=== PATIENT | female | born 1975 | race Caucasian/White ===

== ENCOUNTER 2025-07-23 15:14 | Emergency (ER) | payer BC ==
[~2025-07-23] VITALS: Ht 162.5 cm; Wt 93.9 kg
[2025-07-23 18:17] LABS: BASO # 0.1 10*3/uL (0.0-0.1); BASO % 1.0 % (0.0-1.0); EOS # 0.4 10*3/uL (0.0-0.4); EOS % 4.9 % (1.0-4.0); MEAN CELL VOLUME 90.8 fl (81.0-99.0); MEAN CORPUSCULAR HGB 29.8 pg (27.0-31.0); MEAN PLATELET VOLUME 9.6 fl (9.6-12.3); MONO # 0.7 10*3/uL (0.1-1.0); MONO % 8.5 % (3.0-9.0); NEUT # 4.7 10*3/uL (2.3-7.9); NEUT % 57.4 % (47.0-73.0); NUCLEATED RED BLOOD CELL 0.0 % (0.0-0.0); NUCLEATED RED BLOOD CELL 0.0 10*3/uL (0.0-0.0); PLATELET COUNT AUTOMATED 279 10*3/uL (130-400); RED CELL DISTRI WIDTH 12.7 % (0-14.5)
[2025-07-23 18:31] LABS: BILIRUBIN Negative (Negative); BLOOD Negative (Negative); CLARITY Clear (Clear); COLOR Yellow (Yellow); KETONE Negative (Negative); LEUKO ESTERASE 1+ (Negative); NITRITE Positive (Negative); PH 5.0 (4.5-8.0); SPECIFIC GRAVITY 1.025 (1.001-1.030); UROBILINOGEN 0.2 E.U./dl (0.0-1.0)
[2025-07-23 18:35] LABS: BUN 14 mg/dl (9-23)
[2025-07-23 18:49] LABS: BACTERIA 3+; EPITHELIAL CELLS 0-2; WBC 16-20 wbc/hpf (0-5)
[2025-07-23] MEDS ORDERED: CIPRO500 MG PO (18:59)
[2025-07-23] MEDS ORDERED: Ciprofloxacin Hydrochloride 500 MG TAB PO ONE (19:00)
== END 2025-07-23 19:10 | disposition home or self-care (01) ==
LOC: ED 15:14
PROVIDERS: Nurse Practitioner Family
DX: N39.0 Urinary tract infection, site not specified (principal)